=== PATIENT | female | born 1990 | race Two or more races ===

== ENCOUNTER 2018-03-22 08:00 | Inpatient (IN) | payer OTHER ==
[2018-03-22] MEDS: ELECTROLYTE-148 SOLN 1,000 ML IV SCH ×2 (09:10→10:30)
--- NOTE | 2018-03-22 09:15 | HP ---
Past Medical History - Primary Care Physician PCP:: Lory Fallon - Admission Chief Complaint: Previous Section x 2. IUP at 39 week History Source: Patient - Past Medical History ...: 3 ...Para: 2 Infectious Disease: Yes: STD's (hx of chlamydia treated) - Past Surgical History Past Surgical History: Yes: Hx Myomectomy: No Hx Transabdominal Cerclage: No - Smoking History Smoking history: Never smoked Have you smoked in the past 12 months: No Aproximately how many cigarettes per day: 0 - Alcohol/Substance Use Hx Alcohol Use: No History of Substance Use: reports: None - Social History History of Recent Travel: No Home Medications - Allergies Allergies/Adverse Reactions: Allergies Allergy/AdvReac Type Severity Reaction Status Date / Time No Known Allergies Allergy Verified 03/22/18 09:03 - Home Medications Home Medications: Ambulatory Orders Vits96/Iron Fum/Folic [ Tablet] 1 each PO DAILY 03/22/18 Physical Exam - Maternity Constitutional: Yes: Well Nourished, No Distress Neck: Yes: WNL Cardiovascular: Yes: WNL, Regular Rate and Rhythm Lungs: Clear to auscultation Breast(s): Yes: WNL - Abdominal Exam/OB Fundal Height: 39 Number of Fetuses: Single Presentation: Vertex Contractions: No Category: I Decelerations: None - Vaginal Exam/OB Dilatation (cm): closed Effacement (%): long Amniotic Membrane Status: Intact Presentation: Vertex/Position - Physical Exam Musculoskeletal: Yes: WNL Extremities: Yes: WNL Edema: No Psychiatric: Yes: WNL, Alert, Oriented Hemorrhage Risk Assessment - Risk Factors Medium Risk Factors: Yes: Prior , uterine surgery,or multiple laparotomies Risk Score: 1 Risk Level: Medium Risk Problem List - Problems (1) Previous delivery affecting , antepartum Code(s): O34.219 - MATERNAL CARE FOR UNSP TYPE SCAR FROM PREVIOUS DEL Assessment/Plan Previuos Section IUP at 39 week by usg Voluntary sterizilation Plan Repeat Section Bilareal salpingectomy
[2018-03-22] MEDS ORDERED: IBUPROFEN 800 MG/8 ML IJ IVPB PRN (09:17)
[2018-03-22] MEDS ORDERED: BENZOCAINE 20% 57 GM BOTTLE TP PRN (09:17)
[2018-03-22] MEDS ORDERED: METHYLERGONOVINE MALEATE 0.2 MG/1 ML AMP IM PRN (09:17)
[2018-03-22] MEDS ORDERED: WITCH HAZEL 50% (TUCKS) 40 PAD/JAR PAD TP PRN (09:17)
[2018-03-22] MEDS ORDERED: BENZOCAINE 28 GM HEMORRHOIDAL OINTMENT TP PRN (09:17)
[2018-03-22] MEDS ORDERED: CITRIC ACID/SODIUM CITRATE 30 ML UNIT-DOSE CUP PO ONE (09:17)
[2018-03-22] MEDS ORDERED: TUBERCULIN PPD 5 TU/0.1ML SYRINGE (IN PATIENT USE ONLY) ID ONE (09:20)
[2018-03-22 09:21] VITALS: BMI 42.6
[2018-03-22] MEDS ORDERED: ceFAZolin SODIUM 1 GM VIAL ONE (09:26)
[2018-03-22] MEDS ORDERED: morphine SULFATE/Preservative Free 0.5 MG/ML (1cc Syringe) ONE (09:26)
[2018-03-22] MEDS ORDERED: KETOROLAC TROMETHAMINE 30 MG/1 ML VIAL ONE (09:26)
[2018-03-22] MEDS ORDERED: OXYTOCIN 20 UNITS in 0.9% NS 40 UNIT/2,000 ML INFUS.BAG IV ONE (10:36)
--- NOTE | 2018-03-22 10:45 | OP ---
Operative Note - Note: Operative Date: 03/22/18 Pre-Operative Diagnosis: Previous Section. MUltiparity. Voluntary Sterilizaton Operation: Repeat Section. bilateral salpingectomy Findings: live male infant Post-Operative Diagnosis: Same as Pre-op Surgeon: Lory Fallon Vba Programmer: Silvio Medrano Anesthesia: General Estimated Blood Loss (mls): 600 Operative Report Dictated: Yes
[2018-03-22] MEDS ORDERED: ePHEDrine SULFATE 50 MG/1 ML AMPULE ONE (10:56)
[2018-03-22 11:21] LABS: ARTERIAL BLD GAS O2 SATURATION 43.7 % (90-98.9); ARTERIAL BLOOD GAS BASE EXCESS -0.1 meq/l (-2-2); ARTERIAL BLOOD GAS PCO2 49.4 mmHg (35-45); ARTERIAL BLOOD GAS pH 7.34 (7.35-7.45)
[2018-03-22 11:24] LABS: VENOUS PC02 49.2 mmHg (38-52); VENOUS PH 7.34 (7.32-7.42)
[2018-03-22] MEDS ORDERED: ONDANSETRON 4 MG/2 ML VIAL IVPUSH PRN (11:44)
--- NOTE | 2018-03-22 20:07 | OP ---
DATE OF OPERATION: 03/22/2018 PREOPERATIVE DIAGNOSIS: Previous section, multiparity. OPERATION: Bilateral salpingectomy and repeat section low transverse. FINDINGS: Live male infant delivered in ROT position. Nuchal cord x1. SURGEON: Lory Fallon MD ICE CREAM FREEZER: MARAH Cohen ANESTHESIA: Dr. Doherty ESTIMATED BLOOD LOSS: 600 mL. DESCRIPTION OF PROCEDURE: The patient was taken to the operating room and placed in supine position, prepped and draped in the usual sterile fashion. A time-out was performed in accordance with hospital regulation. Pfannenstiel skin incision was made through the patient's previous scar. Cautery was then used to cut through layers of the abdominal wall to the level of the fascia. The fascia was cut in the midline. Cautery was then used to open the fascia in a smiling fashion. Kochers were then used to bluntly and sharply dissect the rectus muscles off the fascia. Muscle was split in the midline. Peritoneal cavity was then entered and carried up and down where a bladder retractor was then placed. Scalpel was then used to make a low transverse uterine incision. Incision was carried up using bandage scissors. A live male infant was delivered in ROT position. Nuchal cord x1 reduced. Shoulders were delivered without difficulty. Cord was clamped and cut. Cord blood obtained. Placenta was manually extracted from the uterus. Uterus was exteriorized and cleaned with clean lap pads. The uterine incision was then closed using 0 Biosyn suture first layer continuous and locking, second layer imbricating the first layer. Hemostasis was achieved using [id number] sutures. Babcocks were used to bilaterally grasp the tubes. LigaSure was then used to perform a bilateral salpingectomy. Attention was made to leaving at least 1/2 cm of coagulation stump. The uterus was then anteriorized. Abdominal cavity was cleaned with clean lap pads. Both right and left tube was given to pathology. Peritoneum closed using 0 Biosyn suture. Muscle was approximated in the midline using 0 Biosyn suture. Fascia was then closed using 0 Vicryl suture in 2 parts. The subcutaneous was then closed using interrupted using 3-0 Vicryl suture. The skin was then closed using 3-0 Vicryl in subcuticular fashion. The wound was washed and dressed. The patient had tolerated the procedure well. Estimated blood loss was 600 mL. LORY FALLON M.D. [id number]
[2018-03-23 07:27] LABS: BASO % 0.3 % (0-2.0); EOS % 0.1 % (0-4.5); HEMATOCRIT 30.2 % (32.4-45.2); HEMOGLOBIN 9.7 GM/dL (10.7-15.3); LYMPH % 27.7 % (8-40); MCH 24.9 pg (25.7-33.7); MEAN CELL VOLUME 77.8 fl (80-96); MEAN PLT VOLUME 8.3 fl (7.5-11.1); MONO % 6.6 % (3.8-10.2); NEUT % 65.3 % (42.8-82.8); PLATELET COUNT 227 K/MM3 (134-434); RBC 3.88 M/mm3 (3.60-5.2); RDW 15.5 % (11.6-15.6); WHITE BLOOD COUNT 7.9 K/mm3 (4.0-10.0)
--- NOTE | 2018-03-23 08:17 | PN ---
Progress Note (short form) - Note Progress Note: Anesthesia post op/pain Pt seen and examined S:Alert and awake, comfortable O: Vital Signs Temperature 98.2 F 03/23/18 08:04 Pulse Rate 72 03/23/18 08:04 Respiratory Rate 20 03/23/18 08:04 Blood Pressure 111/68 03/23/18 08:04 O2 Sat by Pulse Oximetry (%) 99 03/22/18 12:40 CBC, BMP 03/23/18 06:00 A/P Current Active Problems Previous delivery affecting , antepartum (Acute) s/p c section Doing well post op Continue current care José Keys MD
[2018-03-23] MEDS: PRENATAL VITAMINS W/ FOLIC ACID TABLET (FP) PO SCH (09:06)
[2018-03-23] MEDS: FERROUS SO4 325 MG TABLET (FP) PO SCH ×2 (09:06→21:24)
[2018-03-23] MEDS ORDERED: BISACODYL 10 MG SUPP.RECT RC PRN (09:17)
--- NOTE | 2018-03-23 10:50 | PN ---
Post Progress Note - Subjective Subjective: Doing well Pain controlled ambulating voiding tolerating clears Type of Delivery: Repeat C/S Vital Signs: Vital Signs Temperature 98.2 F 03/23/18 08:04 Pulse Rate 72 03/23/18 08:04 Respiratory Rate 20 03/23/18 09:00 Blood Pressure 111/68 03/23/18 08:04 O2 Sat by Pulse Oximetry (%) 99 03/22/18 12:40 Uterus: Yes: Fundus Firm Incision: Yes: Dressing dry and intact Abdomen/GI: Yes: Abdomen soft, Tolerating PO. No: Tender Lochia, amount: Small Extremities: Yes: Calves non-tender. No: Edema Perineum: Yes: Intact Activity: Ambulating - Labs Labs: CBC WBC 7.9 K/mm3 (4.0-10.0) 03/23/18 06:00 RBC 3.88 M/mm3 (3.60-5.2) 03/23/18 06:00 Hgb 9.7 GM/dL (10.7-15.3) L 03/23/18 06:00 Hct 30.2 % (32.4-45.2) L 03/23/18 06:00 MCV 77.8 fl (80-96) L 03/23/18 06:00 MCH 24.9 pg (25.7-33.7) L 03/23/18 06:00 MCHC 32.0 g/dl (32.0-36.0) 03/23/18 06:00 RDW 15.5 % (11.6-15.6) 03/23/18 06:00 Plt Count 227 K/MM3 (134-434) 03/23/18 06:00 MPV 8.3 fl (7.5-11.1) 03/23/18 06:00 Absolute Neuts (auto) 5.1 K/mm3 (1.5-8.0) 03/23/18 06:00 Neutrophils % 65.3 % (42.8-82.8) 03/23/18 06:00 Lymphocytes % 27.7 % (8-40) 03/23/18 06:00 Monocytes % 6.6 % (3.8-10.2) 03/23/18 06:00 Eosinophils % 0.1 % (0-4.5) 03/23/18 06:00 Basophils % 0.3 % (0-2.0) 03/23/18 06:00 Nucleated RBC % 0 % (0-0) 03/23/18 06:00 Problem List - Problems (1) delivery delivered Code(s): O82 - ENCOUNTER FOR DELIVERY WITHOUT INDICATION Assessment/Plan routine care regular diet PO pain meds encourage ambulation
[2018-03-23] MEDS ORDERED: ACETAMINOPHEN 325 MG TABLET (FP) PO PRN (11:23)
[2018-03-23] MEDS: oxyCODONE HCL 5 MG TABLET PO PRN ×2 (11:34→20:25)
[2018-03-23] MEDS: SIMETHICONE 80 MG TAB.CHEW (FP) PO PRN ×2 (11:35→20:25)
[2018-03-23] MEDS: IBUPROFEN 600 MG TABLET (FP) PO PRN ×2 (11:35→20:26)
[2018-03-23] MEDS ORDERED: DIPHTH,PERTUSS(ACELL),TET 0.5 ML DISP.SYRIN IM ONE (16:30)
--- NOTE | 2018-03-24 06:20 | PN ---
Progress Note (SOAP) - Subjective Chief Complaint: Pt doing well with mild pain - Current Medications Current Medications: Active Medications Acetaminophen (Tylenol -) 650 mg PO Q4H PRN PRN Reason: FEVER Benzocaine (Americaine 20% [place] -) 1 spray TP PRN PRN PRN Reason: Pain - Topical Benzocaine (Americaine Ointment -) 1 applic TP PRN PRN PRN Reason: Pain - Topical Bisacodyl (Dulcolax Suppository -) 10 mg RC PRN PRN PRN Reason: CONSTIPATION Diphenhydramine HCl (Benadryl Injection -) 12.5 mg IVPUSH Q4H PRN PRN Reason: FOR ITCHING Last Admin: 03/22/18 13:00 Dose: 12.5 mg Ferrous Sulfate (Feosol -) 325 mg PO BID [facility] Last Admin: 03/23/18 21:24 Dose: 325 mg Oxytocin/Sodium Chloride (Normal Saline+20 Units Oxytocin -) 20 unit in 1,000 mls @ 125 mls/hr IV ASDIR [facility] Parenteral Electrolytes (Plasma-Lyte 148 -) 1,000 mls @ 125 mls/hr IV ASDIR [facility] Last Admin: 03/22/18 10:30 Dose: 125 mls/hr Lactated Ringer's (Lactated Ringers Solution) 1,000 mls @ 75 mls/hr IV ASDIR [facility] Ibuprofen (Caldolor Injection -) 800 mg IVPB Q8H PRN PRN Reason: FEVER Last Admin: 03/23/18 06:35 Dose: 800 mg Ibuprofen (Motrin -) 600 mg PO Q4H PRN PRN Reason: PAIN LEVEL 1 - 3 Last Admin: 03/23/18 20:26 Dose: 600 mg Methylergonovine Maleate (Methergine Injection -) 0.2 mg IM Q4H PRN PRN Reason: Excessive Bleeding (L&D) Ondansetron HCl (Zofran Injection) 4 mg IVPUSH Q6H PRN PRN Reason: NAUSEA AND/OR VOMITING Last Admin: 03/22/18 15:41 Dose: 4 mg Oxycodone HCl (Roxicodone -) 5 mg PO Q4H PRN PRN Reason: PAIN LEVEL 4 - 6 Last Admin: 03/23/18 20:25 Dose: 5 mg Oxycodone HCl (Roxicodone -) 10 mg PO Q4H PRN PRN Reason: PAIN LEVEL 7 - 10 Multivit/Folic Acid/Iron ( Vitamins (Sjr) -) 1 tab PO DAILY HUGO Last Admin: 03/23/18 09:06 Dose: 1 tab Simethicone (Mylicon -) 80 mg PO Q4H PRN PRN Reason: GAS Last Admin: 03/23/18 20:25 Dose: 80 mg Witch Genevieve/Glycerin (Tucks Pads -) 1 pad TP PRN PRN PRN Reason: Pain - Topical - Objective Vital Signs: Vital Signs Temperature 97.4 F L 03/23/18 20:55 Pulse Rate 79 03/23/18 20:55 Respiratory Rate 20 03/23/18 20:55 Blood Pressure 128/77 03/23/18 20:55 O2 Sat by Pulse Oximetry (%) 99 03/22/18 12:40 Constitutional: Yes: Well Nourished, No Distress Gastrointestinal: Yes: WNL, Soft, Abdomen, Obese ....Post : Yes: Uterus firm, Uterus non-tender Breast(s): Yes: WNL Musculoskeletal: Yes: WNL Extremities: Yes: WNL Edema: No Wound/Incision: Yes: Clean/Dry, Well Approximated, Dressing Removed Neurological: Yes: WNL, Alert, Oriented Labs Lab Results: CBC, BMP 03/23/18 06:00 Problem List - Problems (1) Previous delivery affecting , antepartum Code(s): O34.219 - MATERNAL CARE FOR UNSP TYPE SCAR FROM PREVIOUS DEL Assessment/Plan POD2 SP Section bilateral salpingectomy Anemia Plan Ferrous sulfate OOB continue present management
[2018-03-24] MEDS: SIMETHICONE 80 MG TAB.CHEW (FP) PO PRN ×3 (06:50→18:30)
[2018-03-24] MEDS: IBUPROFEN 600 MG TABLET (FP) PO PRN ×3 (06:50→18:31)
[2018-03-24] MEDS: oxyCODONE HCL 5 MG TABLET PO PRN ×3 (06:50→18:30)
[2018-03-24] MEDS: PRENATAL VITAMINS W/ FOLIC ACID TABLET (FP) PO SCH (09:37)
[2018-03-24] MEDS: FERROUS SO4 325 MG TABLET (FP) PO SCH ×2 (09:37→21:44)
[2018-03-24] MEDS: ELECTROLYTE-148 SOLN 1,000 ML IV SCH (09:38)
[2018-03-24] MEDS: OXYTOCIN 20 UNITS in 0.9% NS 20 UNIT/1,000 ML INFUS.BAG IV SCH (14:45)
[2018-03-24] MEDS: LACTATED RINGERS SOLUTION 1,000 ML IV SCH (14:45)
[2018-03-25] MEDS: SIMETHICONE 80 MG TAB.CHEW (FP) PO PRN ×4 (05:10→22:50)
[2018-03-25] MEDS: IBUPROFEN 600 MG TABLET (FP) PO PRN ×4 (05:11→22:51)
[2018-03-25] MEDS: oxyCODONE HCL 5 MG TABLET PO PRN ×4 (05:11→22:51)
[2018-03-25 08:11] LABS: BASO % 0.5 % (0-2.0); EOS % 1.4 % (0-4.5); HEMATOCRIT 27.4 % (32.4-45.2); HEMOGLOBIN 8.8 GM/dL (10.7-15.3); LYMPH % 30.1 % (8-40); MCH 24.9 pg (25.7-33.7); MCHC 32.2 g/dl (32.0-36.0); MEAN CELL VOLUME 77.4 fl (80-96); MEAN PLT VOLUME 8.1 fl (7.5-11.1); MONO % 8.7 % (3.8-10.2); NEUT % 59.3 % (42.8-82.8); PLATELET COUNT 227 K/MM3 (134-434); RBC 3.54 M/mm3 (3.60-5.2); RDW 15.8 % (11.6-15.6); WHITE BLOOD COUNT 7.2 K/mm3 (4.0-10.0)
[2018-03-25] MEDS: PRENATAL VITAMINS W/ FOLIC ACID TABLET (FP) PO SCH (09:45)
[2018-03-25] MEDS: FERROUS SO4 325 MG TABLET (FP) PO SCH ×2 (09:45→22:45)
--- NOTE | 2018-03-25 10:23 | PN ---
Progress Note (SOAP) - Subjective Chief Complaint: Pt doing well with mild pain - Current Medications Current Medications: Active Medications Acetaminophen (Tylenol -) 650 mg PO Q4H PRN PRN Reason: FEVER Benzocaine (Americaine 20% [place] -) 1 spray TP PRN PRN PRN Reason: Pain - Topical Benzocaine (Americaine Ointment -) 1 applic TP PRN PRN PRN Reason: Pain - Topical Bisacodyl (Dulcolax Suppository -) 10 mg RC PRN PRN PRN Reason: CONSTIPATION Diphenhydramine HCl (Benadryl Injection -) 12.5 mg IVPUSH Q4H PRN PRN Reason: FOR ITCHING Last Admin: 03/22/18 13:00 Dose: 12.5 mg Ferrous Sulfate (Feosol -) 325 mg PO BID [facility] Last Admin: 03/25/18 09:45 Dose: 325 mg Oxytocin/Sodium Chloride (Normal Saline+20 Units Oxytocin -) 20 unit in 1,000 mls @ 125 mls/hr IV [facility] Last Admin: 03/24/18 14:45 Dose: Not Given Parenteral Electrolytes (Plasma-Lyte 148 -) 1,000 mls @ 125 mls/hr IV [facility] Last Admin: 03/24/18 09:38 Dose: Not Given Lactated Ringer's (Lactated Ringers Solution) 1,000 mls @ 75 mls/hr IV [facility] Last Admin: 03/24/18 14:45 Dose: Not Given Ibuprofen (Caldolor Injection -) 800 mg IVPB Q8H PRN PRN Reason: FEVER Last Admin: 03/23/18 06:35 Dose: 800 mg Ibuprofen (Motrin -) 600 mg PO Q4H PRN PRN Reason: PAIN LEVEL 1 - 3 Last Admin: 03/25/18 09:49 Dose: 600 mg Methylergonovine Maleate (Methergine Injection -) 0.2 mg IM Q4H PRN PRN Reason: Excessive Bleeding (L&D) Ondansetron HCl (Zofran Injection) 4 mg IVPUSH Q6H PRN PRN Reason: NAUSEA AND/OR VOMITING Last Admin: 03/22/18 15:41 Dose: 4 mg Oxycodone HCl (Roxicodone -) 5 mg PO Q4H PRN PRN Reason: PAIN LEVEL 4 - 6 Last Admin: 03/25/18 05:11 Dose: 5 mg Oxycodone HCl (Roxicodone -) 10 mg PO Q4H PRN PRN Reason: PAIN LEVEL 7 - 10 Last Admin: 03/25/18 09:49 Dose: 10 mg Multivit/Folic Acid/Iron ( Vitamins (Sjr) -) 1 tab PO DAILY HUGO Last Admin: 03/25/18 09:45 Dose: 1 tab Simethicone (Mylicon -) 80 mg PO Q4H PRN PRN Reason: GAS Last Admin: 03/25/18 09:49 Dose: 80 mg Witch Genevieve/Glycerin (Tucks Pads -) 1 pad TP PRN PRN PRN Reason: Pain - Topical - Objective Vital Signs: Vital Signs Temperature 98.1 F 03/24/18 21:43 Pulse Rate 81 03/24/18 21:43 Respiratory Rate 20 03/24/18 21:43 Blood Pressure 109/67 03/24/18 21:43 O2 Sat by Pulse Oximetry (%) 99 03/22/18 12:40 Constitutional: Yes: Well Nourished, No Distress Cardiovascular: Yes: WNL Respiratory: Yes: WNL Gastrointestinal: Yes: WNL, Soft, Abdomen, Obese ...Rectal Exam: Yes: WNL Genitourinary: Yes: WNL ....Post : Yes: Uterus firm, Uterus non-tender Breast(s): Yes: WNL Musculoskeletal: Yes: WNL Extremities: Yes: WNL Edema: No Wound/Incision: Yes: Steri Strips, Dressing Removed Neurological: Yes: WNL, Alert, Oriented Labs Lab Results: CBC, BMP 03/25/18 07:45 Problem List - Problems (1) Previous delivery affecting , antepartum Code(s): O34.219 - MATERNAL CARE FOR UNSP TYPE SCAR FROM PREVIOUS DEL Assessment/Plan POD2 SP Section bilateral salpingectomy Anemia Plan Ferrous sulfate OOB continue present management DC home in am
[2018-03-25] MEDS: ELECTROLYTE-148 SOLN 1,000 ML IV SCH (13:14)
[2018-03-25] MEDS: LACTATED RINGERS SOLUTION 1,000 ML IV SCH (13:15)
[2018-03-25] MEDS: OXYTOCIN 20 UNITS in 0.9% NS 20 UNIT/1,000 ML INFUS.BAG IV SCH (13:15)
[2018-03-26] MEDS: SIMETHICONE 80 MG TAB.CHEW (FP) PO PRN (08:22)
[2018-03-26] MEDS: oxyCODONE HCL 5 MG TABLET PO PRN (08:22)
[2018-03-26] MEDS: IBUPROFEN 600 MG TABLET (FP) PO PRN (08:23)
[2018-03-26] MEDS: PRENATAL VITAMINS W/ FOLIC ACID TABLET (FP) PO SCH (09:52)
[2018-03-26] MEDS: FERROUS SO4 325 MG TABLET (FP) PO SCH (09:52)
[2018-03-26 12:53] VITALS: BP 135/77; PULSE 84; TEMP 98
--- NOTE | 2018-03-30 17:03 | PATH ---
Surgical Pathology Report Patient Name: JANAK LOZANO [facility]. Rec. 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 Specimen(s) Received A: PLACENTA B: FALLOPIAN TUBE RIGHT C: FALLOPIAN TUBE LEFT Clinical History 2008, 2014, morbid obesity History of chlamydia 2014, late care Final Diagnosis A. PLACENTA, SECTION: 560 G THIRD TRIMESTER PLACENTA WITH TRIVASCULAR UMBILICAL CORD AND FOCAL ACUTE MILD CHORIOAMNIONITIS. B. FALLOPIAN TUBE, RIGHT, SALPINGECTOMY: FALLOPIAN TUBE WITH PARATUBAL CYST (INCLUDING FULL LUMINAL PORTION AND FIMBRIATED END). C. FALLOPIAN TUBE, LEFT, SALPINGECTOMY: FALLOPIAN TUBE WITH FOCAL DECIDUAL REACTION (INCLUDING FULL LUMINAL PORTION AND FIMBRIATED END). Electronically Signed Sarita Corrales M.D. Gross Description A. The specimen is received fresh labeled placenta and is a 560 gram, 13.0 x 12.0 x 4.3 cm. placenta with attached membranes and umbilical cord. The attached membranes are bustillos, thick, cloudy and insert marginally. The umbilical cord measures 15 cm. in length and averages 1 cm. in diameter. The cord inserts eccentrically, 4 cm. to the nearest margin. No true knots or strictures are identified. Cut surface of the umbilical cord reveals 3 vessels. The surface is villasenor blue with moderate fibrin deposition and appropriate caliber vessels. The maternal surface is red-brown with focal defects. Sectioning reveals red-brown, spongy parenchyma. No lesions are identified. Knapsack Sprayer sections are submitted in three cassettes as follows: 1- membrane rolls and umbilical cord; 2-3- full thickness sections of placenta. B. Received in formalin labeled "fallopian tube right," is a 6 cm in length fimbriated fallopian tube. The outer surface is bustillos-carrasco and smooth. There is a 1.0 cm in greatest dimension paratubal cyst attached to the fimbria. Sectioning reveals an unremarkable fallopian tube lumen. Knapsack Sprayer sections are submitted in 2 cassettes as follows: 1-fimbria with paratubal cyst; 2-cross sections of fallopian tube. C. Received in formalin labeled "fallopian tube left," is a 4.5 cm in length fimbriated portion of fallopian tube. The outer surface is bustillos-carrasco and smooth. Sectioning reveals an unremarkable lumen. Knapsack Sprayer sections are submitted in 2 cassettes as follows: 1-fimbria; 2-cross sections of fallopian tube. 03/29/2018 [facility]03/29/2018
== END 2018-03-26 12:30 | disposition home or self-care (01) | DRG 540 ==
LOC: JLDR 08:45 → J3W 13:05
PROVIDERS: ADMIT Obstetrics & Gynecology; ATTEND Obstetrics & Gynecology
PROC: 10D00Z1 Extraction of Products of Conception, Low, Open Approach (ICD-10-PCS; principal; 2018-03-22)
PROC: 0UT70ZZ Resection of Bilateral Fallopian Tubes, Open Approach (ICD-10-PCS; 2018-03-22)
DX: O34.211 Maternal care for low transverse scar from previous cesarean delivery (principal); O99.013 Anemia complicating pregnancy, third trimester; D64.9 Anemia, unspecified; Z3A.39 39 weeks gestation of pregnancy; Z37.0 Single live birth; Z30.2 Encounter for sterilization
CPT/HCPCS: 36415; 36600; 82803; 85025; 88302-TC; 88307-TC; 90715